=== PATIENT | female | born 1995 | race African-American/Black ===

== ENCOUNTER 2020-12-20 15:56 | Emergency (ER) | payer OTHER, SELFPAY ==
--- NOTE | ~2020-12-20 | XR_ITS ---
EXAMINATION: XR ANKLE, RIGHT CLINICAL INFORMATION: Fall. Pain. COMPARISON: None TECHNIQUE: 3 views of the right ankle. FINDINGS: Soft tissue swelling at lateral malleolus. No fracture. Ankle mortise is congruent. XR/XR ankle RT min 3V IMPRESSION: Soft tissue spine lateral malleolus. No acute osseous abnormality.
[2020-12-20 17:12] VITALS: BP 115/80; PULSE 75; RESP 18; TEMP 36.8; O2SAT 100; BMI 34.7
--- NOTE | 2020-12-20 18:01 | ED_ITS ---
HPI - Fall General Chief Complaint: Fall Stated Complaint: Fall right ankle pain Time Seen by Provider: 12/20/20 17:59 Source: patient Mode of arrival: wheelchair Limitations: no limitations History of Present Illness HPI Narrative: 25-year-old healthy female who presents to the ED with right ankle injury. Patient states she missed a few steps falling down pushing her right ankle. Since he has been unable to bear weight noticed increased pain and swelling. No medications prior to arrival. No reports of head injury or trauma. Patient denies any other areas of discomfort. Due to concern and suspicion for fracture she felt she needed to be seen. Related Data Allergies Allergy/AdvReac Type Severity Reaction Status Date / Time No Known Allergies Allergy Verified 12/20/20 17:11 Review of Systems Review of Systems: Constitutional : No Weight loss, No Fever, No Chills, No Night Sweats, No Fatigue, No Malaise ENT/Mouth : No Hearing loss, No Ear Pain, No Nasal Congestion, No Sinus Pain, No Hoarseness, No sore throat, No Rhinorrhea, No Swallowing Difficulty Eyes: No Eye Pain, No Swelling, No Redness, No Foreign Body, No Discharge, No Vision Changes Cardiovascular : No Chest Pain, No SOB, No Dyspnea on Exertion, No Orthopnea, No Edema, No Palpitations Respiratory : No Cough, No Sputum, No Wheezing, No Smoke Exposure, No Dyspnea Gastrointestinal : No Nausea, No Vomiting, No Diarrhea, No Constipation, No abdominal Pain, No Hematochezia, No Melena Genitourinary : no irregular bleeding, No Dysuria, No Urinary Frequency, No Hematuria, No Urinary Incontinence, No Urgency, No Flank Pain, No Urinary Flow Changes, No Hesitancy Musculoskeletal : + joint pain, + Myalgias, + Joint Swelling Skin : No Skin Lesions, No rash Neuro : No Weakness, No Numbness, No Paresthesias, No Loss of Consciousness, No Dizziness, No Headache Psych : No Anxiety/Panic, No Depression, No SI/HI/AH/VH, No Social Issues, Heme/Lymph: No Bruising, No Bleeding,No Lymphadenopathy Endocrine : No Polyuria, No Polydipsia, No Temperature Intolerance [facility] Past Medical History Attestation statement: The following information was validated with the patient. Source: old records reviewed and obtained from family Social History Social History Advance Directives: No Advance Directives Information Provided: Yes Patient : No Physical Exam Vital Signs: Vital Signs: Last Vital Signs Temp 98.2 F 12/20/20 17:12 Pulse 75 12/20/20 17:12 Resp 18 12/20/20 17:12 BP 115/80 12/20/20 17:12 Pulse Ox 100 12/20/20 17:12 Body Mass Index 34.7 vital signs have been reviewed as normal and appeared to be correct. Blood pressure normal. Heart rate normal. Respiration rate normal. Temperature normal. Oxygen saturation normal. Appearance: Alert. Oriented X3. Mild acute distress. Head: Normal external exam. Normocephalic. Atraumatic. No Lyle signs noted. No raccoon eyes noted Eyes: Conjunctiva and sclera normal. ENT: EAC normal. Moist mucous membranes. No drooling noted. No muffled voice noted. Neck: Normal inspection. Neck supple. FROM. No meningeal signs. CVS: Pulses normal throughout. Respiratory: No respiratory distress. Painless inspiration. No accessory muscle usage noted Abdomen: No visible injury noted. Back: Full range of motion noted. Skin: Skin warm and dry. Normal skin color. Normal skin turgor. Extremities: Significant pain with range of motion of the right ankle able to move right toes Achilles intact. Good distal pulses. Significant edema to right lateral malleolus. No pain to palpation of proximal tibia or fibula. No posterior calf tenderness. Full range of motion of the right knee. Remaining extremities with full range of motion. Neuro: Oriented X 3. No motor deficit. No sensory deficit. MDM - Fall MDM Narrative Medical decision making narrative: Patient's vital signs are stable and she is afebrile. Patient presenting to the emergency department with right ankle injury. X-rays obtained in triage without evidence of acute fracture or dislocation patient with significant edema suspicious for ankle sprain. Will medicate with Motrin and Tylenol. Will give crutches and Aircast for support. 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 No other signs of acute injury or trauma. Feel that discharge is safe with close outpatient follow-up and strict return precautions. Discharge Plan Discharge Clinical Impression: Ankle injury Qualifiers: Encounter type: initial encounter Laterality: right Qualified Code(s): S99.911A - Unspecified injury of right ankle, initial encounter Patient Disposition: Home, Self-Care Instructions: Ankle Sprain (ED) Stand Alone Forms: Work/School Release Interventions: ED Discharge Assessment Last Done: 12/20/20 18:27 Discharge Date/Time: 12/20/20 18:29 Print Language: [place]
[2020-12-20] MEDS: Acetaminophen 325 MG TABLET 650 MG PO (18:22)
[2020-12-20] MEDS: Ibuprofen 600 MG TABLET PO (18:22)
== END 2020-12-20 18:29 | disposition home or self-care (01) ==
PROVIDERS: Emergency Provider Emergency Medicine
DX: S99.911A Unspecified injury of right ankle, initial encounter (principal); W10.9XXA Fall (on) (from) unspecified stairs and steps, initial encounter; Y93.9 Activity, unspecified; Y92.9 Unspecified place or not applicable; Y99.9 Unspecified external cause status
CPT/HCPCS: 73610; 99283; 99284